=== PATIENT | female | born 1945 | race Caucasian/White ===

== ENCOUNTER → 2017-02-15 | Day surgery (SDC) | payer OTHER ==
[~2017-02-15] MED LIST: ACETAMINOPHEN 1000 MG/100 ML VIAL IV ONE; BUPIVACAINE/EPINEPHRINE 0.25% PF 10 ML VIAL ONE; LACTATED RINGER'S 1000 ML INJ 1,000 ML ONE; LIDOCAINE 1.5%/EPINEPHrine 1:200,000 PF SOLN 30 ML AMP ONE; MIDAZOLAM HCL 2 MG/2 ML VIAL ONE; ONDANSETRON HCL 4 MG/2 ML VIAL IV PUSH ONE; PROPOFOL 200 MG/20 ML AMP IV ONE; SODIUM CHLORIDE 0.9% 250 ML ADDBAG IV ONE; SODIUM CHLORIDE 0.9% INJ 10 ML ONE; SODIUM CHLORIDE 0.9% SOLN 100 ML BAG IV ONE; VANCOMYCIN HCL 1000 MG VIAL ONE; ceFAZolin INJ 1,000 MG VIAL ONE
--- NOTE | 2017-02-17 07:01 | MP ---
cc: RAYO LOZA M.D., YU H. M.D. DATE OF SURGERY 02/15/2017 PREOPERATIVE DIAGNOSIS Soft tissue mass left upper shoulder. POSTOPERATIVE DIAGNOSIS Soft tissue mass left upper shoulder. PROCEDURE Excision 6 x 7 cm soft tissue mass left upper shoulder. ANESTHESIA LMA SURGEON Rayo Loza MD ESTIMATED BLOOD LOSS Less than 10 mL FLUIDS 950 mL crystalloid COMPLICATIONS None DRAINS None SPECIMEN 6 x 7 cm soft tissue mass to pathology. PROCEDURE IN DETAIL The patient was seen in the holding area and the area in question marked by the undersigned and confirmed by the patient. She was taken to the operating room and placed on the operating table in the supine position. She underwent laryngeal mask anesthesia and then was placed in a right lateral decubitus position. Time-out was taken confirming the correct patient, site, and procedure to be performed. The left upper shoulder was prepped and draped in the usual fashion. The skin and subcutaneous tissue was infiltrated with local anesthetic and an incision made from posterior to anterior along the skin lines. Dissection was carried down to the fatty tumor which was excised in total utilizing a combination of sharp dissection and electrocautery. The lesion appeared to be down onto the muscles. This was removed in a medial to lateral fashion off of the muscles. When this had been completed, the wound was inspected and made hemostatic with electrocautery. When this was completed, the wound was closed in two layers with interrupted 2-0 Vicryl suture and 5-0 PDS in a running subcuticular fashion. A drain was not utilized as the catheter would come out in a very awkward place on the patient and she was best felt to be served by simple pressure bandage. The wound was dressed with Steri-Strips and 4x4s applied as a pressure bandage. She was extubated and taken back to the recovery room in stable condition. Sponge, needle and instrument counts were reported to be correct. Rayo Loza MD MAF/DJL /1:04 PM /6:59 AM
== END | disposition home or self-care (01) ==
LOC: ESDC 09:05
PROVIDERS: ATTEND Surgery Trauma Surgery
DX: D17.22 Benign lipomatous neoplasm of skin and subcutaneous tissue of left arm (principal)
CPT/HCPCS: 01610; 23073; 88304; J0131; J0690; J2250; J2405; J3010; J3370; J7120; 88305